=== PATIENT | male | born 1970 ===

== ENCOUNTER → 2017-04-11 | Outpatient (CLI) | payer BC ==
[~2017-04-11] MED LIST: ALBU90OI INH; CRUTCH4 USE; EPIN.3I IM; FAMO40 PO; OXYACE5T PO; PRED10 PO
== END | disposition home or self-care (01) ==
LOC: LAB 12:48
DX: R05 Cough (principal); J45.998 Other asthma
CPT/HCPCS: 87070; 87205

== ENCOUNTER → 2019-05-01 | Outpatient (CLI) | payer BC | END | disposition home or self-care (01) | LOC: LAB EV 10:00 → LAB SHORT 10:00 | DX: Z51.81 Encounter for therapeutic drug level monitoring (principal); Z79.899 Other long term (current) drug therapy | CPT/HCPCS: G0480 ==